=== PATIENT | female | born 1960 | race Two or more races ===

== ENCOUNTER 2016-08-28 22:14 | Emergency (ER) | payer MEDICARE ==
[~2016-08-28] VITALS: Ht 160 cm; Wt 81.6 kg
[2016-08-28] MEDS ORDERED: diphenhdrAMINE HCL 50 MG/1 ML VL ONE (22:22)
[2016-08-28] MEDS ORDERED: diphenhdrAMINE HCL 50 MG/1 ML VL IV ONE (22:30)
[2016-08-29] MEDS ORDERED: DEXAMETHASONE SOD PHOS 10MG/1ML VIAL INJ IV ONE (01:30)
[2016-08-29] MEDS ORDERED: SODIUM CHLORIDE 0.9% 1,000 ML IV ONE (01:30)
[2016-08-29] MEDS ORDERED: diphenhdrAMINE HCL 50 MG/1 ML VL IV ONE (01:30)
[2016-08-29] MEDS ORDERED: FAMOTIDINE (10MG/ML) 2ML VL IV ONE (01:30)
[2016-08-29] MEDS ORDERED: DIPHENOXYLATE W/ATROPINE 2.5 MG TAB PO ONE (01:45)
[2016-08-29] MEDS ORDERED: HYDROmorphone HCL 2 MG/ML VL IV ONE (02:30)
[2016-08-29] MEDS ORDERED: ONDANSETRON HCL 4 MG/2 ML VIAL IV ONE (02:30)
[2016-08-29 04:20] VITALS: BP 100/66
== END 2016-08-29 06:17 | disposition home or self-care (01) ==
LOC: ER 22:14
DX: R22.0 Localized swelling, mass and lump, head (principal); M19.90 Unspecified osteoarthritis, unspecified site; T50.995A Adverse effect of other drugs, medicaments and biological substances, initial encounter; L51.9 Erythema multiforme, unspecified; R19.7 Diarrhea, unspecified; R10.13 Epigastric pain; Z86.73 Personal history of transient ischemic attack (TIA), and cerebral infarction without residual deficits; E78.5 Hyperlipidemia, unspecified; E07.9 Disorder of thyroid, unspecified; Y92.89 Other specified places as the place of occurrence of the external cause
CPT/HCPCS: 74176; 96361; 96374; 96375; 96376; 99284; J1100; J1170; J1200; J2405; J3490; J7030

== ENCOUNTER 2016-09-28 15:55 | Emergency (ER) | payer MEDICARE, MEDICAID ==
[~2016-09-28] VITALS: Ht 162.6 cm; Wt 79.8 kg
[2016-09-28 16:09] VITALS: BP 171/96
[2016-09-28 17:21] LABS: Basophils # (auto) 0 uL; Basophils % (auto) 0.1 % (0.0-2.0); Eosinophils # (auto) 0 uL; Eosinophils % (auto) 0.6 % (0.0-7.0); Hemoglobin 13.8 g/dL (12.2-16.2); Lymphocytes # (auto) 1.4 uL; Lymphocytes % (auto) 18.1 % (10.0-50.0); Mean Corpuscular Hemoglobin 31.3 pg (28.0-32.0); Mean Corpuscular Hgb Conc. 33.5 g/dL (32.0-36.0); Mean Corpuscular Volume 93.3 fL (80.0-100.0); Mean Platelet Volume 8.5 fL (7.4-10.4); Monocytes # (auto) 0.7 uL; Monocytes % (auto) 8.3 % (0.0-12.0); Neutrophils # (auto) 5.8 uL; Neutrophils % (auto) 72.9 % (37.0-80.0); Platelet Count (auto) 305 10^3/uL (140-450); Red Cell Distribution Width 15.4 % (11.6-16.0); White Blood Cell 7.9 10^3/uL (4.4-10.8)
[2016-09-28 17:36] LABS: Albumin 3.6 g/dL (3.4-5.0); Alkaline Phosphatase 118 U/L (45-117); Anion Gap 12 (5-15); Aspartate Aminotransferase 21 U/L (15-37); BUN/Creatinine Ratio 10.4; Bilirubin, Total 0.5 mg/dL (0.2-1.0); Blood Urea Nitrogen 7 mg/dL (7-18); Carbon Dioxide 23 mmol/L (21-32); Chloride 105 mmol/L (98-107); GFR African American 118 mL/min; GFR Non-African American 98 mL/min; Glucose 85 mg/dL (74-106); Potassium 3.5 mmol/L (3.5-5.1); Sodium 140 mmol/L (136-145); Total Protein 8.6 g/dL (6.4-8.2)
== END 2016-09-28 22:12 | disposition left against medical advice (07) ==
LOC: ER 15:57
DX: R05 Cough (principal); R09.81 Nasal congestion; Z53.21 Procedure and treatment not carried out due to patient leaving prior to being seen by health care provider
CPT/HCPCS: 36415; 71020; 80053; 84484; 85025; 93005

== ENCOUNTER → 2019-07-29 | Emergency (ER) | payer MEDICARE, MEDICAID ==
[~2019-07-29] VITALS: Ht 170.2 cm; Wt 63.5 kg
[~2019-07-29] MED LIST: MORPHINE SULFATE 4 MG/ML SYR/VIAL IV ONE; ONDANSETRON HCL 4 MG/2 ML VIAL IV ONE
[2019-07-29 19:32] LABS: Basophils # (auto) 0 uL; Basophils % (auto) 0.8 % (0.0-2.0); Eosinophils # (auto) 0.2 uL; Eosinophils % (auto) 3.5 % (0.0-7.0); Hematocrit 41.4 % (36.0-46.0); Lymphocytes # (auto) 1.8 uL; Mean Corpuscular Hemoglobin 30.5 pg (28.0-32.0); Mean Corpuscular Hgb Conc. 33.9 g/dL (32.0-36.0); Mean Corpuscular Volume 90.2 fL (80.0-100.0); Monocytes # (auto) 0.6 uL; Monocytes % (auto) 9.8 % (0.0-12.0); Neutrophils # (auto) 3.3 uL; Neutrophils % (auto) 55.9 % (37.0-80.0); Nucleated Red Blood Cells % 0.1 %; Platelet Count (auto) 201 10^3/uL (140-450); Red Blood Cells 4.59 10^6/uL (4.0-5.20); Red Cell Distribution Width 13.4 % (11.8-14.3); White Blood Cell 5.8 10^3/uL (4.4-10.8)
[2019-07-29 19:47] LABS: Alanine Aminotransferase 37 U/L (13-56); Albumin 3.9 g/dL (3.4-5.0); Anion Gap 5 (5-15); Blood Urea Nitrogen 8 mg/dL (7-18); Calcium 9.1 mg/dL (8.5-10.1); Carbon Dioxide 27 mmol/L (21-32); Chloride 108 mmol/L (98-107); Glucose 116 mg/dL (74-106); Potassium 3.9 mmol/L (3.5-5.1); Sodium 140 mmol/L (136-145)
[2019-07-29 19:52] LABS: Alkaline Phosphatase 93 U/L (45-117); Aspartate Aminotransferase 31 U/L (15-37); BUN/Creatinine Ratio 9.3; Bilirubin, Total 0.4 mg/dL (0.2-1.0); GFR African American 88 mL/min; GFR Non-African American 73 mL/min; INR 1.01 (0.9-1.15); Partial Thromboplastin Time 26.2 sec (23.64-32.05); Total Protein 8.6 g/dL (6.4-8.2)
[2019-07-29 21:10] LABS: Urine Bacteria NONE SEEN /hpf (None Seen); Urine Blood Negative /uL (Negative); Urine Specific Gravity 1.011 (1.001-1.035); Urine WBC <1 /hpf (0 - 5)
[2019-07-29 23:14] VITALS: BP 133/75
== END | disposition home or self-care (01) ==
LOC: ER 18:18 → EDBD 18:18 → EDUNIT# 18:18
DX: S39.012A Strain of muscle, fascia and tendon of lower back, initial encounter (principal); M47.897 Other spondylosis, lumbosacral region; R73.9 Hyperglycemia, unspecified; E78.5 Hyperlipidemia, unspecified; Z90.49 Acquired absence of other specified parts of digestive tract; Z90.710 Acquired absence of both cervix and uterus; X58.XXXA Exposure to other specified factors, initial encounter; Y93.89 Activity, other specified; Y92.89 Other specified places as the place of occurrence of the external cause; Y99.8 Other external cause status
CPT/HCPCS: 36415; 71045; 72131; 80053; 81001; 84484; 85025; 85610; 85730; 93005; 96374; 96375; 99285; J2270; J2405

== ENCOUNTER 2019-10-31 09:30 | Emergency (ER) | payer MEDICARE, MEDICAID ==
[~2019-10-31] VITALS: Ht 162.6 cm; Wt 72.6 kg
[2019-10-31] MEDS ORDERED: TETANUS-DIPTH-ACEL PERTUSSIS 0.5ML SYR Tdap IM ONE (09:45)
[2019-10-31] MEDS ORDERED: LIDOCAINE 1% HCL (LOCAL ANESTH.) INJ 20ML MDV IJ ONE (09:45)
[2019-10-31 09:47] VITALS: BP 125/101
== END 2019-10-31 10:47 | disposition home or self-care (01) ==
LOC: EDBD 09:30 → ER 09:30
DX: S61.512A Laceration without foreign body of left wrist, initial encounter (principal); E78.5 Hyperlipidemia, unspecified; Z86.73 Personal history of transient ischemic attack (TIA), and cerebral infarction without residual deficits; Z90.49 Acquired absence of other specified parts of digestive tract; Z90.710 Acquired absence of both cervix and uterus; W26.8XXA Contact with other sharp object(s), not elsewhere classified, initial encounter; Y93.89 Activity, other specified; Y92.89 Other specified places as the place of occurrence of the external cause; Y99.8 Other external cause status
CPT/HCPCS: 12004; 90471; 90715; 99283; J2001

== ENCOUNTER 2023-02-14 07:11 | Inpatient (IN) | payer MEDICARE, MEDICAID ==
[~2023-02-14] VITALS: Ht 162.6 cm; Wt 70.9 kg
[2023-02-14] MEDS ORDERED: ASPirin 325 MG TAB PO ONE (07:30)
[2023-02-14] MEDS ORDERED: NITROGLYCERIN 0.4 MG SL TAB SL ONE (07:45)
[2023-02-14] MEDS ORDERED: MORPHINE SULFATE 4 MG/ML SYR/VIAL IV ONE (07:45)
[2023-02-14] MEDS ORDERED: ONDANSETRON HCL 4 MG/2 ML VIAL IV ONE (07:45)
[2023-02-14 08:01] VITALS: PULSE 84; RESP 19; O2SAT 96
[2023-02-14 08:08] LABS: Basophils # (auto) 0 10 ^3/uL (0-0.2); Basophils % (auto) 0.5 % (0.0-2.0); Eosinophils # (auto) 0 10 ^3/uL (0-0.8); Eosinophils % (auto) 0.5 % (0.0-7.0); Hematocrit 35.7 % (36.0-46.0); Hemoglobin 11.7 g/dL (12.2-16.2); Lymphocytes # (auto) 1.3 10 ^3/uL (0.4-5.4); Lymphocytes % (auto) 23.8 % (10.0-50.0); Mean Corpuscular Hemoglobin 31.3 pg (28.0-32.0); Mean Corpuscular Hgb Conc. 32.9 g/dL (32.0-36.0); Mean Corpuscular Volume 95.2 fL (80.0-100.0); Monocytes # (auto) 0.5 10 ^3/uL (0-1.3); Monocytes % (auto) 9.8 % (0.0-12.0); Neutrophils # (auto) 3.7 10 ^3/uL (1.6-8.6); Neutrophils % (auto) 65.4 % (37.0-80.0); Nucleated Red Blood Cells % 0.1 %; Red Blood Cells 3.75 10^6/uL (4.0-5.20); Red Cell Distribution Width 14.8 % (11.8-14.3); White Blood Cell 5.6 10^3/uL (4.4-10.8)
[2023-02-14 08:24] LABS: Alanine Aminotransferase 14 U/L (7-40); Alkaline Phosphatase 67 U/L (46-116); Anion Gap 10.5 (5-15); Aspartate Aminotransferase 11 U/L (13-40); BUN/Creatinine Ratio 15.3 (10.0-20.0); Blood Urea Nitrogen 9 mg/dL (9-23); Carbon Dioxide 22.5 mmol/L (20-30); Chloride 111 mmol/L (98-107); Glucose 123 mg/dL (74-106); Potassium 3.7 mmol/L (3.5-5.1); Sodium 144 mmol/L (136-145)
[2023-02-14 08:25] LABS: Bilirubin, Total 0.8 mg/dL (0.2-1.0); Total Protein 6.8 g/dL (5.7-8.2)
[2023-02-14] MEDS ORDERED: ATORVASTATIN 20 MG TAB PO ONE (08:45)
[2023-02-14] MEDS ORDERED: METOPROLOL TARTRATE 25 MG TAB PO ONE (08:45)
[2023-02-14] MEDS ORDERED: LEVOTHYROXINE SODIUM 88 MCG TAB PO ONE (08:45)
[2023-02-14] MEDS ORDERED: LOSARTAN POTASSIUM 25 MG TAB PO ONE (09:00)
[2023-02-14] MEDS ORDERED: NITROGLYCERIN 0.4 MG SL TAB SL PRN ×2 (09:45→13:30)
[2023-02-14] MEDS ORDERED: CLOPIDOGREL 300 MG TAB PO ONE (09:45)
[2023-02-14 11:04] LABS: Urine Bacteria NONE SEEN /hpf (None Seen); Urine Blood Negative /uL (Negative); Urine Clarity Clear (Clear); Urine Color Yellow (Yellow); Urine Hyaline Cast FEW /lpf (0 - 2); Urine Mucus FEW (None Seen); Urine Protein, UAD Negative (Negative); Urine Specific Gravity 1.019 (1.001-1.035); Urine Urobilinogen Normal (Negative); Urine WBC 2 /hpf (0 - 5)
[2023-02-14 11:29] LABS: COVID19 ANTIGEN SOFIA FIA NEGATIVE (NEGATIVE)
[2023-02-14] MEDS ORDERED: MORPHINE SULFATE INJ 2 MG/ml SYRG IV PRN (13:30)
[2023-02-14 14:01] LABS: Amphetamine Screen, Urine Neg (NEGATIVE); Barbiturate Scree,Urine Neg (NEGATIVE); Benzodiazephine Screen, Urine Neg (NEGATIVE); Cocaine Screen, Urine Neg (NEGATIVE); Opiate Scree,Urine Neg (NEGATIVE)
[2023-02-14 14:02] LABS: Cannabinoid Screen, Urine Neg (NEGATIVE); Phencyclidine Screen, Urine Neg (NEGATIVE)
[2023-02-14] MEDS: SODIUM CHLOR 0.9% PF (SALINE LOCK) 10ML VIAL/SYR IV SCH ×2 (14:07→22:13)
[2023-02-14 20:00] VITALS: PULSE 89; RESP 17; O2SAT 97
[2023-02-14] MEDS: ATORVASTATIN 20 MG TAB PO SCH (23:31)
[2023-02-15] MEDS: SODIUM CHLOR 0.9% PF (SALINE LOCK) 10ML VIAL/SYR IV SCH ×3 (06:01→22:37)
[2023-02-15 06:03] LABS: Basophils # (auto) 0 10 ^3/uL (0-0.2); Basophils % (auto) 0.6 % (0.0-2.0); Eosinophils # (auto) 0.1 10 ^3/uL (0-0.8); Eosinophils % (auto) 1.8 % (0.0-7.0); Hematocrit 35.4 % (36.0-46.0); Hemoglobin 12.1 g/dL (12.2-16.2); Lymphocytes # (auto) 1.4 10 ^3/uL (0.4-5.4); Lymphocytes % (auto) 25.5 % (10.0-50.0); Mean Corpuscular Hemoglobin 32.6 pg (28.0-32.0); Mean Corpuscular Hgb Conc. 34.1 g/dL (32.0-36.0); Mean Corpuscular Volume 95.8 fL (80.0-100.0); Monocytes # (auto) 0.6 10 ^3/uL (0-1.3); Monocytes % (auto) 11.1 % (0.0-12.0); Neutrophils # (auto) 3.3 10 ^3/uL (1.6-8.6); White Blood Cell 5.5 10^3/uL (4.4-10.8)
[2023-02-15 06:11] LABS: Anion Gap 7.3 (5-15); Carbon Dioxide 24.7 mmol/L (20-30); Chloride 107 mmol/L (98-107); Sodium 139 mmol/L (136-145)
[2023-02-15 06:12] LABS: Calcium 9.2 mg/dL (8.7-10.4)
[2023-02-15 06:17] LABS: BUN/Creatinine Ratio 9.8 (10.0-20.0); Blood Urea Nitrogen 6 mg/dL (9-23); Glucose 89 mg/dL (74-106)
[2023-02-15] MEDS: LEVOTHYROXINE SODIUM 88 MCG TAB PO SCH (06:38)
[2023-02-15 08:00] VITALS: PULSE 71; RESP 17; O2SAT 100
[2023-02-15] MEDS: ENOXAPARIN SOD 40 MG/0.4 ML SYRINGE SC SCH (09:31)
[2023-02-15] MEDS: LOSARTAN POTASSIUM 25 MG TAB PO SCH (09:32)
[2023-02-15] MEDS: ASPirin 81 mg TAB PO SCH (09:32)
[2023-02-15] MEDS: CLOPIDOGREL BISULFATE 75 MG TAB PO SCH (09:32)
[2023-02-15] MEDS ORDERED: METOPROLOL TARTRATE 25 MG TAB PO SCH (09:45)
[2023-02-15] MEDS ORDERED: LOSARTAN POTASSIUM 25 MG TAB PO SCH (10:00)
[2023-02-15 16:00] VITALS: BP 109/55; PULSE 70; RESP 16; TEMP 98.2; O2SAT 100
[2023-02-15 20:00] VITALS: PULSE 70; PULSE 83; RESP 16; O2SAT 100
[2023-02-15 20:22] VITALS: BP 109/55; PULSE 70; RESP 16; TEMP 98.2; O2SAT 100
[2023-02-15] MEDS ORDERED: ABAT1INJ2 SC (20:53)
[2023-02-15] MEDS ORDERED: LOS25T PO (20:53)
[2023-02-15 22:00] VITALS: BP 112/64; PULSE 73; RESP 18; TEMP 98; O2SAT 100
[2023-02-15] MEDS: ATORVASTATIN 20 MG TAB PO SCH (22:37)
[2023-02-16 04:57] VITALS: BP 109/62; PULSE 81; RESP 18; TEMP 98.4; O2SAT 100
[2023-02-16 05:53] LABS: Basophils # (auto) 0 10 ^3/uL (0-0.2); Basophils % (auto) 0.5 % (0.0-2.0); Eosinophils # (auto) 0.1 10 ^3/uL (0-0.8); Eosinophils % (auto) 1.8 % (0.0-7.0); Hematocrit 35.2 % (36.0-46.0); Hemoglobin 12.1 g/dL (12.2-16.2); Lymphocytes # (auto) 1.1 10 ^3/uL (0.4-5.4); Lymphocytes % (auto) 23.1 % (10.0-50.0); Mean Corpuscular Hemoglobin 32.8 pg (28.0-32.0); Mean Corpuscular Hgb Conc. 34.3 g/dL (32.0-36.0); Mean Corpuscular Volume 95.6 fL (80.0-100.0); Monocytes # (auto) 0.6 10 ^3/uL (0-1.3); Monocytes % (auto) 11.8 % (0.0-12.0); Neutrophils # (auto) 2.9 10 ^3/uL (1.6-8.6); Neutrophils % (auto) 62.8 % (37.0-80.0); Nucleated Red Blood Cells % 0.1 %; Red Blood Cells 3.68 10^6/uL (4.0-5.20); Red Cell Distribution Width 14.4 % (11.8-14.3); White Blood Cell 4.7 10^3/uL (4.4-10.8)
[2023-02-16 06:02] LABS: Chloride 107 mmol/L (98-107); Potassium 4.5 mmol/L (3.5-5.1); Sodium 140 mmol/L (136-145)
[2023-02-16 06:03] LABS: Anion Gap 3.7 (5-15); Calcium 9.2 mg/dL (8.7-10.4); Carbon Dioxide 29.3 mmol/L (20-30)
[2023-02-16 06:08] LABS: BUN/Creatinine Ratio 9.9 (10.0-20.0); Blood Urea Nitrogen 7 mg/dL (9-23); Glucose 94 mg/dL (74-106)
[2023-02-16] MEDS: SODIUM CHLOR 0.9% PF (SALINE LOCK) 10ML VIAL/SYR IV SCH ×3 (07:28→21:49)
[2023-02-16] MEDS: LEVOTHYROXINE SODIUM 88 MCG TAB PO SCH (07:28)
[2023-02-16 08:00] VITALS: BP 112/78; PULSE 78; PULSE 80; RESP 16; TEMP 97.1; O2SAT 100
[2023-02-16] MEDS: ASPirin 81 mg TAB PO SCH (09:16)
[2023-02-16] MEDS: LOSARTAN POTASSIUM 25 MG TAB PO SCH (09:17)
[2023-02-16] MEDS: CLOPIDOGREL BISULFATE 75 MG TAB PO SCH (09:21)
[2023-02-16] MEDS: ENOXAPARIN SOD 40 MG/0.4 ML SYRINGE SC SCH (09:21)
[2023-02-16 13:02] VITALS: BP 97/63; PULSE 77; RESP 16; TEMP 97; O2SAT 100
[2023-02-16 17:00] VITALS: BP 100/65; PULSE 54; RESP 18; TEMP 96.7; O2SAT 89
[2023-02-16 20:00] VITALS: PULSE 88
[2023-02-16] MEDS: ATORVASTATIN 20 MG TAB PO SCH (21:49)
[2023-02-16 22:04] VITALS: BP 118/75; PULSE 82; RESP 20; TEMP 98.5; O2SAT 99
[2023-02-17] VITALS (12 sets, daily range): BP systolic 96–118; BP diastolic 56–78; PULSE 77–87; RESP 15–20; TEMP 97.8–98.5; O2SAT 95–99
[2023-02-17] MEDS: LEVOTHYROXINE SODIUM 88 MCG TAB PO SCH (06:23)
[2023-02-17] MEDS: SODIUM CHLOR 0.9% PF (SALINE LOCK) 10ML VIAL/SYR IV SCH ×3 (06:23→21:47)
[2023-02-17 06:50] LABS: Basophils # (auto) 0 10 ^3/uL (0-0.2); Basophils % (auto) 0.6 % (0.0-2.0); Eosinophils # (auto) 0.1 10 ^3/uL (0-0.8); Eosinophils % (auto) 1.6 % (0.0-7.0); Hematocrit 38.1 % (36.0-46.0); Lymphocytes # (auto) 1.3 10 ^3/uL (0.4-5.4); Lymphocytes % (auto) 27.1 % (10.0-50.0); Mean Corpuscular Hemoglobin 32.5 pg (28.0-32.0); Mean Corpuscular Hgb Conc. 34.1 g/dL (32.0-36.0); Mean Corpuscular Volume 95.3 fL (80.0-100.0); Monocytes # (auto) 0.5 10 ^3/uL (0-1.3); Monocytes % (auto) 10.4 % (0.0-12.0); Neutrophils % (auto) 60.3 % (37.0-80.0); Nucleated Red Blood Cells % 0.1 %; Red Cell Distribution Width 14.2 % (11.8-14.3); White Blood Cell 4.9 10^3/uL (4.4-10.8)
[2023-02-17 06:58] LABS: Chloride 103 mmol/L (98-107); Potassium 3.1 mmol/L (3.5-5.1); Sodium 138 mmol/L (136-145)
[2023-02-17 06:59] LABS: Calcium 9.2 mg/dL (8.5-10.1)
[2023-02-17 07:02] LABS: INR 1.04 (0.9-1.15); Partial Thromboplastin Time 28.8 SEC (24.5-34.5); Prothrombin Time 10.9 sec (9.3-11.8)
[2023-02-17 07:03] LABS: Glucose 114 mg/dL (74-106)
[2023-02-17 07:04] LABS: Blood Urea Nitrogen 8 mg/dL (9-23)
[2023-02-17 07:32] LABS: Anion Gap 10 (5-15); Carbon Dioxide 25 mmol/L (20-30)
[2023-02-17] MEDS ORDERED: POTASSIUM CHL 20 Meq TABLET PO ONE (07:45)
[2023-02-17] MEDS: ENOXAPARIN SOD 40 MG/0.4 ML SYRINGE SC SCH (08:47)
[2023-02-17] MEDS: CLOPIDOGREL BISULFATE 75 MG TAB PO SCH (08:47)
[2023-02-17] MEDS: ASPirin 81 mg TAB PO SCH (08:47)
[2023-02-17] MEDS: LOSARTAN POTASSIUM 25 MG TAB PO SCH (09:26)
[2023-02-17] MEDS ORDERED: HEPARIN SODIUM (PORCINE) 5000 UNITS/ML 1ML VIAL ONE (10:39)
[2023-02-17] MEDS ORDERED: VERAPAMIL 2.5MG/ML INJ 2ML VIAL IV ONE (10:39)
[2023-02-17] MEDS ORDERED: ANGIOMAX 250 MG VIAL IV ONE (10:39)
[2023-02-17] MEDS ORDERED: fentaNYL CITRATE 100 MCG/2 ML VL ONE (10:40)
[2023-02-17] MEDS ORDERED: SODIUM CHL 0.9% 50 ML ONE (10:40)
[2023-02-17] MEDS ORDERED: MIDAZOLAM HCL 2MG/2ML 2ml VIAL (1mg/ml) ONE ×2 (10:40→12:01)
[2023-02-17] MEDS ORDERED: CLOPIDOGREL 300 MG TAB ONE (11:53)
[2023-02-17] MEDS ORDERED: ASPirin 81 mg TAB ONE (11:53)
[2023-02-17] MEDS ORDERED: EPTIFIBATIDE INJ (2MG/ML) 10ML VIAL IV ONE (11:57)
[2023-02-17] MEDS ORDERED: ACETAMINOPHEN 325 MG TAB PO PRN (16:15)
[2023-02-17] MEDS: ACETAMINOPHEN 325 MG TAB PO PRN (16:43)
[2023-02-17] MEDS: HYDROcodone-ACET 5/325MG TAB PO PRN (20:58)
[2023-02-17] MEDS: ATORVASTATIN 20 MG TAB PO SCH (21:46)
[2023-02-18 05:00] VITALS: BP 118/78; PULSE 85; RESP 16; TEMP 97.3; O2SAT 97
[2023-02-18] MEDS: SODIUM CHLOR 0.9% PF (SALINE LOCK) 10ML VIAL/SYR IV SCH ×2 (05:24→13:27)
[2023-02-18] MEDS: HYDROcodone-ACET 5/325MG TAB PO PRN (05:25)
[2023-02-18 06:20] LABS: Chloride 103 mmol/L (98-107); Potassium 3.5 mmol/L (3.5-5.1); Sodium 137 mmol/L (136-145)
[2023-02-18] MEDS: LEVOTHYROXINE SODIUM 88 MCG TAB PO SCH (06:20)
[2023-02-18 06:21] LABS: Anion Gap 11 (5-15); Carbon Dioxide 23 mmol/L (20-30)
[2023-02-18 06:22] LABS: Calcium 9.2 mg/dL (8.7-10.4)
[2023-02-18 06:27] LABS: BUN/Creatinine Ratio 12.7 (10.0-20.0); Blood Urea Nitrogen 8 mg/dL (9-23); Glucose 126 mg/dL (74-106)
[2023-02-18 08:00] VITALS: PULSE 90
[2023-02-18 08:06] LABS: Basophils # (auto) 0 10 ^3/uL (0-0.2); Basophils % (auto) 0.5 % (0.0-2.0); Eosinophils # (auto) 0.1 10 ^3/uL (0-0.8); Eosinophils % (auto) 1.5 % (0.0-7.0); Hematocrit 37.8 % (36.0-46.0); Hemoglobin 12.7 g/dL (12.2-16.2); Lymphocytes # (auto) 1.9 10 ^3/uL (0.4-5.4); Lymphocytes % (auto) 31.1 % (10.0-50.0); Mean Corpuscular Hemoglobin 32.6 pg (28.0-32.0); Mean Corpuscular Hgb Conc. 33.7 g/dL (32.0-36.0); Mean Corpuscular Volume 96.8 fL (80.0-100.0); Monocytes # (auto) 0.6 10 ^3/uL (0-1.3); Monocytes % (auto) 10.4 % (0.0-12.0); Neutrophils # (auto) 3.5 10 ^3/uL (1.6-8.6); Neutrophils % (auto) 56.5 % (37.0-80.0); Nucleated Red Blood Cells % 0.1 %; Red Cell Distribution Width 14.8 % (11.8-14.3); White Blood Cell 6.2 10^3/uL (4.4-10.8)
[2023-02-18 09:00] VITALS: BP 109/72; PULSE 88; RESP 18; TEMP 98; O2SAT 99
[2023-02-18] MEDS: ENOXAPARIN SOD 40 MG/0.4 ML SYRINGE SC SCH (09:04)
[2023-02-18] MEDS: ASPirin 81 mg TAB PO SCH (09:04)
[2023-02-18] MEDS: CLOPIDOGREL BISULFATE 75 MG TAB PO SCH (09:04)
[2023-02-18] MEDS: LOSARTAN POTASSIUM 25 MG TAB PO SCH (09:04)
[2023-02-18] MEDS ORDERED: CLOP75TA70 PO (09:34)
[2023-02-18] MEDS ORDERED: ATOR20TA50 PO (09:34)
[2023-02-18] MEDS ORDERED: ASPI-325 PO (09:34)
[2023-02-18] MEDS: ACETAMINOPHEN 325 MG TAB PO PRN (11:46)
[2023-02-18 13:00] VITALS: BP 108/71; PULSE 88; RESP 19; TEMP 98.2; O2SAT 100
== END 2023-02-18 13:26 | disposition home or self-care (01) | DRG 246 ==
LOC: EDBD 07:11 → ER 07:11 → TELE 13:29 → TELE-EAST 02-15 13:28
PROVIDERS: ADMIT Internal Medicine Pulmonary Disease; ATTEND Internal Medicine Pulmonary Disease
PROC: 4A023N7 Measurement of Cardiac Sampling and Pressure, Left Heart, Percutaneous Approach (ICD-10-PCS; principal; 2023-02-17)
PROC: 027034Z Dilation of Coronary Artery, One Artery with Drug-eluting Intraluminal Device, Percutaneous Approach (ICD-10-PCS; 2023-02-17)
PROC: B2111ZZ Fluoroscopy of Multiple Coronary Arteries using Low Osmolar Contrast (ICD-10-PCS; 2023-02-17)
PROC: B2161ZZ Fluoroscopy of Right and Left Heart using Low Osmolar Contrast (ICD-10-PCS; 2023-02-17)
PROC: 02C03ZZ Extirpation of Matter from Coronary Artery, One Artery, Percutaneous Approach (ICD-10-PCS; 2023-02-17)
DX: I21.09 ST elevation (STEMI) myocardial infarction involving other coronary artery of anterior wall (principal); I50.21 Acute systolic (congestive) heart failure; I11.0 Hypertensive heart disease with heart failure; E03.9 Hypothyroidism, unspecified; E78.5 Hyperlipidemia, unspecified; R73.03 Prediabetes; M06.9 Rheumatoid arthritis, unspecified; Z20.822 Contact with and (suspected) exposure to COVID-19; Z90.710 Acquired absence of both cervix and uterus; Z86.73 Personal history of transient ischemic attack (TIA), and cerebral infarction without residual deficits; Z83.3 Family history of diabetes mellitus; Z79.82 Long term (current) use of aspirin; Z90.49 Acquired absence of other specified parts of digestive tract; I25.119 Atherosclerotic heart disease of native coronary artery with unspecified angina pectoris
CPT/HCPCS: 36415; 36600; 71045; 76604; 76937; 80048; 80053; 80307; 81001; 82805; 83036; 83735; 83880; 84443; 84484; 85025; 85379; 85610; 85730; 86850; 86900; 86901; 87426; 92933; 93005; 93306; 93458; 96374; 96375; 99152; 99153; 99291; G0378; J2250; J2405